=== PATIENT | male | born 1950 | race Caucasian/White ===

== ENCOUNTER 2023-08-18 12:09 | Emergency (ER) | payer MEDICARE, OTHER, SELFPAY ==
[2023-08-18] VITALS (17 sets, daily range): BP systolic 86–139; BP diastolic 66–92; BMI 25.8
[2023-08-18 14:34] LABS: % Basophils 0.3 % (0-2); % Eosinophils 1.2 % (0-6); % Immature Granulocytes 0.3 % (0-0.5); % Lymphocytes 10.6 % (20.5-51.1); % Monocytes 7.5 % (1.7-9.3); % Neutrophils 80.1 % (42.2-75.2); Absolute Eosinophils 0.1 10^3/uL (0-0.7); Absolute Monocytes 0.7 10^3/uL (0.1-0.6); Absolute Neutrophils 7.5 10^3/uL (1.4-6.5); Hematocrit 38.5 % (39.0-52.0); Hemoglobin 13.4 g/dL (13.0-18.0); Mean Corp Hgb Conc. 34.8 g/dL (33.0-37.0); Mean Corpuscular Hgb 28.5 pg (27.0-31.0); Mean Corpuscular Volume 81.9 fL (80.0-94.0); Mean Platelet Volume 10.3 fL (7.4-10.4); Nucleated Red Blood Cells % 0 % (-); Platelet Count 242 10^3/uL (130-400); White Blood Cell Count 9.3 10^3/uL (4.8-10.8)
[2023-08-18 14:46] LABS: APTT 33.3 Sec (23.4-35.0)
[2023-08-18 14:51] LABS: ALT (SGPT) < 10 U/L (0-50); AST (SGOT) 19 U/L (17-59); Albumin 4.1 g/dl (3.5-5.0); Alkaline Phosphatase 78 U/L (38-126); Blood Urea Nitrogen 27 mg/dl (9-20); Calcium 9.1 mg/dl (8.4-10.2); Carbon Dioxide 29 mmol/L (22-30); Chloride 104 mmol/L (98-107); Glucose 121 mg/dl (70-99); Potassium 4.5 mmol/L (3.5-5.1); Sodium 135 mmol/L (135-145); Total Bilirubin 0.9 mg/dl (0.2-1.3); Total Protein 6.6 g/dl (6.3-8.2); eGFR 48.85
--- NOTE | 2023-08-18 15:13 | ED.GENMED ---
History of Present Illness
<Reggie Bello PA-C - Last Filed: 08/18/23 16:56>
General
Chief Complaint: Heart Rate Problem
Source: patient, spouse and family
Time Seen by Provider: 08/18/23 13:56
Travel History
Have you had any contact with someone who has COVID-19?: No
Do you have any symptoms of coronavirus? Fever > 100 degrees, chills, cough, shortness of breath, sore throat, loss of taste or smell, muscle aches, or headache?: No
History of Present Illness
History of Present Illness:
72-year-old male with past medical history of atrial fibrillation and Parkinson's presenting to the emergency department with family after patient had some increased fatigue today which family attributed to his Parkinson's however earlier in the
afternoon patient's Apple Watch notified him that he had an elevated heart rate and was in atrial fibrillation. Patient takes Eliquis for his A-fib however is not on any other medications. Had previously been on cardia but due to side effects of
this medication this was disc Nute. Patient is denying any chest pain, shortness of breath, palpitations, diaphoresis, exertional dyspnea, orthopnea, lower extremity edema or any other concerns. Patient states that earlier he thought he was having
some mild GERD like symptoms and took a Tums for this but now believes his symptoms were likely related to atrial fibrillation. Patient follows with [facility].
Past History
<Reggie Bello PA-C - Last Filed: 08/18/23 16:56>
Past History
ED Past Medical History: Arrthythmia, Asthma and Other (Parkinson's, chronic constipation, chronic cough, asthma)
ED Past Surgical History: Other (Hernia repair x2)
Social History
Tobacco: Non-smoker
Alcohol: None
Drug: None
Personal:
Living: with family
Review of Systems
<Reggie Bello PA-C - Last Filed: 08/18/23 16:56>
Review of Systems
All Other Systems: ROS reviewed and negative except as documented in HPI and ROS
Phy Exam
<HUSSAIN Hilton Last Filed: 08/18/23 16:56>
Physical Exam
Physical Exam:
GENERAL: Alert , in no apparent distress
EYE: Clear conjunctiva slightly dry mucous membranes
NECK: Supple
ENT: o/p clr, dry mucous membranes
CARDIAC: Irregularly irregular, tachycardic with rate between 100-144 bpm
LUNGS: Clear breath sounds bilaterally, no acute respiratory distress,
NEUROLOGICAL: Alert and oriented
SKIN: Warm and dry, skin intact.
MUSCULOSKELETAL: well perfused.
PSYCH: Normal and appropriate interaction.
Scores
<HUSSAIN Hilton Last Filed: 08/18/23 16:56>
Heart Failure Risk
Heart Failure Risk Score: Not Applicable
Heart Score for Chest Pain Patients
STEMI patient?: Not applicable
Withdrawal Assessment of Alcohol
Withdrawal Assessment Completed?: Not applicable
Course
<HUSSAIN Hilton Last Filed: 08/18/23 16:56>
Orders/Labs/Results
Orders:
Orders
08/18/23 12:15
Electrocardiogram (*1) Urgent
Reason for Study: Chest Pain
EKG- Treatment ONCE
08/18/23 14:27
Complete Blood Count/With Diff Urgent
Comprehensive Metabolic Panel Urgent
PTT Urgent
08/18/23 15:01
Propofol [Diprivan] 20 ml .ROUTE .STK-MED
08/18/23 15:35
Electrocardiogram (*1) Urgent
Reason for Study: Chest Pain
EKG- Treatment ONCE
Abnormal Lab Results
08/18/23
14:27
Hct 38.5 L %
(39.0-52.0)
Absolute Neuts (auto) 7.5 H 10^3/uL
(1.4-6.5)
Absolute Lymphs (auto) 1.0 L 10^3/uL
(1.2-3.4)
Absolute Monos (auto) 0.7 H 10^3/uL
(0.1-0.6)
Neutrophils % 80.1 H %
(42.2-75.2)
Lymphocytes % 10.6 L %
(20.5-51.1)
BUN 27 H mg/dl
(9-20)
Creatinine 1.5 H mg/dL
(0.7-1.3)
Glucose 121 H mg/dl
(70-99)
08/18/23 14:27
08/18/23 14:27
Vital Signs
Initial and Last Documented VS:
Initial Vital Signs
Temp Pulse Resp BP Pulse Ox
98.3 F 105 16 102/76 98
08/18/23 12:12 08/18/23 12:12 08/18/23 12:12 08/18/23 12:12 08/18/23 12:12
Last Documented Vital Signs
Temp Pulse Resp BP Pulse Ox
98.0 F 84 20 103/68 100
08/18/23 16:26 08/18/23 16:26 08/18/23 16:26 08/18/23 16:26 08/18/23 16:26
<Alivia Atkins MD - Last Filed: 08/18/23 15:39>
Orders/Labs/Results
Orders:
Orders
08/18/23 12:15
Electrocardiogram (*1) Urgent
Reason for Study: Chest Pain
EKG- Treatment ONCE
08/18/23 14:27
Complete Blood Count/With Diff Urgent
Comprehensive Metabolic Panel Urgent
PTT Urgent
08/18/23 15:01
Propofol [Diprivan] 20 ml .ROUTE .STK-MED
08/18/23 15:35
Electrocardiogram (*1) Urgent
Reason for Study: Chest Pain
EKG- Treatment ONCE
Abnormal Lab Results
08/18/23
14:27
Hct 38.5 L %
(39.0-52.0)
Absolute Neuts (auto) 7.5 H 10^3/uL
(1.4-6.5)
Absolute Lymphs (auto) 1.0 L 10^3/uL
(1.2-3.4)
Absolute Monos (auto) 0.7 H 10^3/uL
(0.1-0.6)
Neutrophils % 80.1 H %
(42.2-75.2)
Lymphocytes % 10.6 L %
(20.5-51.1)
BUN 27 H mg/dl
(9-20)
Creatinine 1.5 H mg/dL
(0.7-1.3)
Glucose 121 H mg/dl
(70-99)
08/18/23 14:27
08/18/23 14:27
Vital Signs
Initial and Last Documented VS:
Initial Vital Signs
Temp Pulse Resp BP Pulse Ox
98.3 F 105 16 102/76 98
08/18/23 12:12 08/18/23 12:12 08/18/23 12:12 08/18/23 12:12 08/18/23 12:12
Last Documented Vital Signs
Temp Pulse Resp BP Pulse Ox
98.0 F 84 20 103/68 100
08/18/23 16:26 08/18/23 16:26 08/18/23 16:26 08/18/23 16:26 08/18/23 16:26
Procedures
<Reggie Bello PA-C - Last Filed: 08/18/23 16:56>
Cardioversion
Indication:: Afib
Performed by:: Milly/Ace
Synchronized?: Yes
Energy Used: 200 joules
Number of attempts: 1
Successful?: Yes
Complications: none
ASA Risk Score: Class II
Any reaction or bad outcome to prior sedation/anesthesia?: No history of a reaction
Sedation level to be attained: moderate
Chart and allergies reviewed: Yes
Patient reassessed prior to sedation: Yes
Time out completed at (validating right patient & procedure): 15:26
History of difficult intubation: No
Airway free of obstruction: Yes
Patient has a gag reflex: Yes
Patient is able to open mouth: Yes
Patient has no dentures: Yes
Patient has no loose teeth: Yes
Medication administered by Provider during Moderate Sedation: IV Propofol (mg)
Total dose administered: 60
Time drug administered: 15:31
Start Time: 15:33
Stop Time: 15:56
<Reggie Bello PA-C - Last Filed: 08/18/23 16:56>
MDM/Problems Addressed
Differential Diagnosis Includes:
Cardiac dysrhythmia, electrolyte disturbance, valvular dysfunction, Parkinson's
MDM/Problems Addressed:
72-year-old male presenting to the emergency department for evaluation after his Apple Watch told him he had an elevated heart rate and was in atrial fibrillation. Heart rate during my exam persistently around 100 to 140 bpm. I had extensive
conversation with family in regards to treatment of atrial fibrillation with rapid ventricular rate including oral or IV medications or electrical cardioversion as patient is a good candidate for this given he is readily compliant with his Eliquis.
After long discussion and shared decision making patient and family were comfortable with plan to perform cardioversion. Will discuss with cardiology if they would like me to initiate patient on any rate control medications for home and to help
expedite outpatient follow-up visit. Anticipate discharge home pending cardioversion.
Chronic conditions affecting care: Arrhythmia
Acute Exacerbation and/or Progression of Chronic Illness: Arrhythmia
<Reggie Bello PA-C - Last Filed: 08/18/23 16:56>
*Pulse Oximetry
Patient hypoxic: no
*EKG
Interpreted by ED Provider?: Yes
Heart Rate: 141
Rate: tachycardiac
Rhythm: a-fib
Ischemia: no ischemia
*Com[employer] Retro[employer] Interpretation
Rate: tachycardiac
Rhythm: a-fib
*Critical Care Note
Total Time (30-74mins, 75-104mins- exclusive of procedures): Not Applicable
Data Reviewed
Review of Other/Old Records Reveals: Labs
Source: patient and family
<Reggie Bello PA-C - Last Filed: 08/18/23 16:56>
Patient Management
Discussion with other providers: Price Checker
Escalation/DeEscalation of care consider admission/obs:
Patient tolerated procedure without any difficulty and he is back into a normal sinus rhythm. I notified patient's cardiology office and they would like patient to be started on Toprol 25 mg p.o. once daily and they will follow-up with the patient
in office next. Patient will otherwise be stable for discharge home and aware cautions.
ED Attending Note
<Reggie Bello PA-C - Last Filed: 08/18/23 16:56>
-
Portions of this chart may have been created with voice recognition software.� Occasional wrong word or��sound alike� substitutions may have occurred due to the inherent limitations of voice recognition software.
<Alivia Atkins MD - Last Filed: 08/18/23 15:39>
ED Attending Note
Patient seen and examined by attending physician: Yes
I performed the substantive portion of visit, reviewed & personally made and approve the management plan that is documented in note by myself or KHOI.: Yes
ED Attending Note:
Patient personally evaluated by me. We discussed the cardioversion. Patient's heart rate is irregular and rapid. Lungs are clear. Patient appears nontoxic. I personally assisted with the conscious sedation and cardioversion.
Discharge Plan
Departure
Patient Disposition: Home (Routine Discharge)
Date of Disposition: 08/18/23
Time of Disposition: 16:15
Patient with high blood pressure during this ER visit?: No
Discharge Problem:
Atrial fibrillation with rapid ventricular response
Instructions: Atrial Fibrillation (DC)
Prescriptions:
New
metoprolol succinate [Toprol XL] 25 mg tablet extended release 24 hr
25 mg PO DAILY Qty: 30 0RF
No Action
carbidopa-levodopa [Sinemet] 25-100 mg Tablet
2 tab PO .6X DAILY
famotidine [Pepcid] 20 mg Tablet
20 mg PO HS
omeprazole 20 mg Tablet,Delayed Release (Dr/Ec)
20 mg PO DAILY
polyethylene glycol 3350 17 gram Powder In Packet
17 g PO DAILY Qty: 30 0RF
Eliquis 5 mg Tablet
5 mg PO BID Qty: 60 0RF
amantadine HCl 100 mg Tablet
100 mg PO DAILY
ondansetron HCl 8 mg tablet
4 mg PO TID PRN (Reason: nausea)
bisacodyl 5 mg Tablet
15 mg PO DAILY
multivitamin Tablet
1 tab PO DAILY
pantoprazole 40 mg Tablet,Delayed Release (Dr/Ec)
40 mg PO DAILY Qty: 30 0RF
calcium carbonate [Antacid (calcium carbonate)] 200 mg calcium (500 mg) Tablet,Chewable
400 mg PO Q4HPRN PRN (Reason: indigestion) Qty: 30 0RF
Interventions
Interventions:
ED- Cardiac Assessment Last Done: 08/18/23 16:13
ED- Pulmonary Assessment Last Done: 08/18/23 14:45
== END 2023-08-18 17:04 | disposition home or self-care (01) ==
LOC: EMR 12:09
PROVIDERS: Emergency Medicine; EMERGENCY PHYSICIAN Emergency Medicine; FAMILY PHYSICIAN Internal Medicine
DX: I48.91 Unspecified atrial fibrillation (principal)
CPT/HCPCS: 92960; 99285; 99152; 99153; 80053; 85025; 85730; 93005

== ENCOUNTER 2023-08-21 22:40 | Emergency (ER) | payer MEDICARE, OTHER, SELFPAY ==
[2023-08-21 22:42] VITALS: BP 138/74
[2023-08-21 23:03] LABS: % Basophils 0.5 % (0-2); % Eosinophils 3.8 % (0-6); % Immature Granulocytes 0.5 % (0-0.5); % Lymphocytes 20.2 % (20.5-51.1); Absolute Eosinophils 0.3 10^3/uL (0-0.7); Absolute Lymphocytes 1.7 10^3/uL (1.2-3.4); Absolute Monocytes 0.8 10^3/uL (0.1-0.6); Absolute Neutrophils 5.3 10^3/uL (1.4-6.5); Hematocrit 39.5 % (39.0-52.0); Hemoglobin 13.7 g/dL (13.0-18.0); Mean Corp Hgb Conc. 34.7 g/dL (33.0-37.0); Mean Corpuscular Hgb 28.9 pg (27.0-31.0); Mean Corpuscular Volume 83.3 fL (80.0-94.0); Mean Platelet Volume 10.4 fL (7.4-10.4); Nucleated Red Blood Cells % 0 % (-); Platelet Count 269 10^3/uL (130-400); Red Blood Cell Count 4.74 10^6/uL (4.70-6.10); White Blood Cell Count 8.2 10^3/uL (4.8-10.8)
[2023-08-21 23:31] LABS: ALT (SGPT) < 10 U/L (0-50); AST (SGOT) 19 U/L (17-59); Albumin 4.5 g/dl (3.5-5.0); Alkaline Phosphatase 90 U/L (38-126); Blood Urea Nitrogen 24 mg/dl (9-20); Carbon Dioxide 27 mmol/L (22-30); Chloride 105 mmol/L (98-107); Glucose 108 mg/dl (70-99); Potassium 4.6 mmol/L (3.5-5.1); Sodium 136 mmol/L (135-145); Total Bilirubin 0.5 mg/dl (0.2-1.3); Total Protein 7.2 g/dl (6.3-8.2); eGFR > 60.00
[2023-08-22 02:04] VITALS: BP 156/91
[2023-08-22 02:31] LABS: Urine Albumin Negative (Neg - Trace); Urine Bilirubin Negative (Negative); Urine Character Clear (Clear); Urine Color Yellow; Urine Glucose Negative (Negative); Urine Ketone Trace (Negative); Urine Leukocyte Trace (Negative); Urine Nitrite Negative (Negative); Urine Occult Blood Trace (Negative); Urine Specific Gravity 1.015 (<1.030); Urine Urobilinogen Negative (Neg - 1+)
[2023-08-22 03:23] LABS: Urine Bacteria Few (Negative); Urine Red Blood Cell 16-20 /HPF (0-2); Urine White Cell 0-2 /HPF (0-5)
[2023-08-22 03:24] LABS: Urine Mucus Few
--- NOTE | 2023-08-22 03:51 | ED.GENMED ---
History of Present Illness
General
Chief Complaint: Change in Mental Status
Source: patient
Exam Limitations: none
Time Seen by Provider: 08/22/23 01:47
Nursing documentation reviewed up to this point in time: agreed with
Travel History
Have you had any contact with someone who has COVID-19?: No
Do you have any symptoms of coronavirus? Fever > 100 degrees, chills, cough, shortness of breath, sore throat, loss of taste or smell, muscle aches, or headache?: No
History of Present Illness
History of Present Illness:
Pt with history of parkinson's dz and TIA, along with dysphagia, presents to ED secondary to confusion noted by family over the past 24hrs, similar to last year when he experienced TIA along with new onset atrial fibrillation. Pt is currently on
Eliquis. Denies headache. Denies chest pain/sob. Denies n/v/d. Denies recent illness. Denies recent change in medications/diet. Pt admittedly has trouble swallowing due to dysphagia, and as such, has trouble drinking water, as oral liquid requires
certain consistency/thickness. Pt and family are concerned that he may also be experiencing side effects from the medication.
Past History
Past History
ED Past Medical History: Arrthythmia, Asthma and Other (Parkinson's, chronic constipation, chronic cough, asthma)
ED Past Surgical History: Other (Hernia repair x2)
Social History
Tobacco: Non-smoker
Alcohol: None
Drug: None
Personal:
Living: with family
Review of Systems
Review of Systems
Allergies reviewed?: Yes
All Other Systems: ROS reviewed and negative except as documented in HPI and ROS
Constitutional: Reports no symptoms
EENT: Reports no symptoms
Respiratory: Reports no symptoms
Cardiac: Reports no symptoms
ABD/GI: Reports no symptoms
Musculoskeletal: Reports no symptoms
Skin: Reports no symptoms
Neurological: Reports other (confusion)
Phy Exam
Physical Exam
Physical Exam:
Physical Exam
General: no apparent distress, not acutely ill. afebrile
Head: nc/at. eomi
Neck: supple. no meningeal signs.
Heart: s1/s2 regular rate and rhythm, no murmur. equal radial pulses.
Lungs: no acute respiratory distress. clear bilaterally
Abdomen: normal bowel sounds. not tender.
Neuro: alert and oriented. no focal neurological deficits
Skin: no rash
Psychiatric: well kept. interactive and cooperative
Extremities: no edema. no calf tenderness.
Course
Orders/Labs/Results
Orders:
Orders
08/21/23 22:45
Electrocardiogram (*1) Urgent
Reason for Study: Other
Other Reason for Exam: CONFUSION RECENT AT FIB
08/21/23 22:46
EKG- Treatment ONCE
08/21/23 22:57
CMP [Comprehensive Metabolic Panel] Urgent
Complete Blood Count/With Diff Urgent
08/22/23 01:47
CT Head W/o Iv Contrast Urgent
Comment:
Reason For Exam: mental status change
08/22/23 02:13
Urinalysis Reflex To Culture Urgent
Date Specimen was Collected: 08/22/23
Time Specimen was Collected: 02:13
Urine Microscopic Reflex Cult Urgent
08/22/23 03:00
0.9% Sodium Chloride 500 ml [Nss] 500 ml IV BOLUS
Abnormal Lab Results
08/21/23 08/22/23
22:57 02:13
Absolute Monos (auto) 0.8 H 10^3/uL
(0.1-0.6)
Lymphocytes % 20.2 L %
(20.5-51.1)
Monocytes % 10.0 H %
(1.7-9.3)
BUN 24 H mg/dl
(9-20)
Glucose 108 H mg/dl
(70-99)
Urine Ketones Trace A
(Negative)
Ur Occult Blood Reflex Trace A
(Negative)
Leukocyte Esterase Rfl Trace A
(Negative)
Urine RBC 16-20 A /HPF
(0-2)
Urine Bacteria (Reflex) Few A
(Negative)
08/21/23 22:57
08/21/23 22:57
Vital Signs
Initial and Last Documented VS:
Initial Vital Signs
Temp Pulse Resp BP Pulse Ox
98.2 F 82 24 138/74 100
08/21/23 22:42 08/21/23 22:42 08/21/23 22:42 08/21/23 22:42 08/21/23 22:42
Last Documented Vital Signs
Temp Pulse Resp BP Pulse Ox
97.4 F 87 22 144/79 97
08/22/23 02:04 08/22/23 04:00 08/22/23 04:00 08/22/23 04:00 08/22/23 04:00
MDM/Problems Addressed
MDM/Problems Addressed:
CT head: NAD. Pt with unremarkable workup in ED, including blood work and CT scan. Patient's presenting symptoms likely multifactorial, including mild dehydration along with medication effect. At time of discharge, patient and family confirm that
he appears improved. Patient will follow-up with his neurologist as an outpatient.
*Critical Care Note
Total Time (30-74mins, 75-104mins- exclusive of procedures): Not Applicable
ED Attending Note
-
Portions of this chart may have been created with voice recognition software.� Occasional wrong word or��sound alike� substitutions may have occurred due to the inherent limitations of voice recognition software.
Discharge Plan
Departure
Patient Disposition: Home (Routine Discharge)
Date of Disposition: 08/22/23
Time of Disposition: 04:46
Patient with high blood pressure during this ER visit?: Yes
Condition: Good
Discharge Problem:
Altered mental status, Dehydration
Instructions: Dehydration, Adult (DC), Altered Mental Status (DC)
Prescriptions:
No Action
carbidopa-levodopa [Sinemet] 25-100 mg Tablet
2 tab PO .6X DAILY
famotidine [Pepcid] 20 mg Tablet
20 mg PO HS
omeprazole 20 mg Tablet,Delayed Release (Dr/Ec)
20 mg PO DAILY
polyethylene glycol 3350 17 gram Powder In Packet
17 g PO DAILY Qty: 30 0RF
Eliquis 5 mg Tablet
5 mg PO BID Qty: 60 0RF
amantadine HCl 100 mg Tablet
100 mg PO DAILY
ondansetron HCl 8 mg tablet
4 mg PO TID PRN (Reason: nausea)
bisacodyl 5 mg Tablet
15 mg PO DAILY
multivitamin Tablet
1 tab PO DAILY
pantoprazole 40 mg Tablet,Delayed Release (Dr/Ec)
40 mg PO DAILY Qty: 30 0RF
calcium carbonate [Antacid (calcium carbonate)] 200 mg calcium (500 mg) Tablet,Chewable
400 mg PO Q4HPRN PRN (Reason: indigestion) Qty: 30 0RF
metoprolol succinate [Toprol XL] 25 mg tablet extended release 24 hr
25 mg PO DAILY Qty: 30 0RF
Referrals:
Clemente Blanca MD [Active] -
Armando Walker MD [Family Provider] -
Activity Restrictions/Additional Instructions:
As discussed, please follow-up with your primary care physician and/or neurologist for further evaluation and treatment.
Interventions
Interventions:
*Risk Screen - Suicide Last Done: 08/21/23 22:42
*Neglect/Abuse Screening Last Done: 08/21/23 22:42
ED- Fall Risk Assessment Last Done: 08/22/23 02:04
*Nursing Disposition Last Done: 08/22/23 04:53
ED- Neurological Assessment Last Done: 08/22/23 02:04
ED- Cardiac Assessment Last Done: 08/22/23 02:04
Discharge Date and Time
Discharge Date/Time: 08/22/23 04:54
[2023-08-22 04:00] VITALS: BP 144/79
== END 2023-08-22 04:54 | disposition home or self-care (01) ==
LOC: EMR 22:40
PROVIDERS: EMERGENCY PHYSICIAN Emergency Medicine; FAMILY PHYSICIAN Internal Medicine
DX: E86.0 Dehydration (principal); R41.82 Altered mental status, unspecified; R53.1 Weakness; R03.0 Elevated blood-pressure reading, without diagnosis of hypertension; G20.A1 Parkinson's disease without dyskinesia, without mention of fluctuations; R13.10 Dysphagia, unspecified; J45.909 Unspecified asthma, uncomplicated; R05.3 Chronic cough; K59.09 Other constipation; I48.91 Unspecified atrial fibrillation; U09.9 Post COVID-19 condition, unspecified; K21.9 Gastro-esophageal reflux disease without esophagitis; Z86.73 Personal history of transient ischemic attack (TIA), and cerebral infarction without residual deficits; Z98.890 Other specified postprocedural states; Z79.01 Long term (current) use of anticoagulants; Z88.1 Allergy status to other antibiotic agents; Z88.2 Allergy status to sulfonamides
CPT/HCPCS: 99284; 70450; 80053; 81003; 81015; 85025; 93005

== ENCOUNTER → 2025-01-09 14:38 | Outpatient (REF) | payer MEDICARE, OTHER, SELFPAY | LOC: RAD 14:38 | PROVIDERS: ATTENDING PHYSICIAN Internal Medicine | DX: G20.C Parkinsonism, unspecified (principal); G20.A1 Parkinson's disease without dyskinesia, without mention of fluctuations | CPT/HCPCS: 70450 ==